=== PATIENT | female | born 1990 | race Caucasian/White ===

== ENCOUNTER 2022-03-28 15:18 | Inpatient (IN) | payer OTHER ==
[2022-03-28] MEDS ORDERED: LIDOCAINE 0.5% (PF) 5 MG/ML (50 ML SDV) SQ PRN (15:48)
[2022-03-28] MEDS ORDERED: OXYTOCIN 10 UNIT/ML 1 ML VIAL IM PRN (15:48)
[2022-03-28] MEDS ORDERED: CARBOPROST TROMETHAMINE 250 MCG/ML 1 ML AMP IM PRN (15:48)
[2022-03-28] MEDS ORDERED: TERBUTALINE 1 MG/ML VIAL SQ PRN (15:48)
[2022-03-28] MEDS ORDERED: METHYLERGONOVINE 0.2 MG/ML 1 ML AMP IM PRN (15:48)
[2022-03-28] MEDS ORDERED: OXYTOCIN 30 UNITS/500 ML NS 30 UNIT in SALINE 1 500ML.BAG IV SCH (16:00)
[2022-03-28] MEDS ORDERED: PENICILLIN G POTASSIUM 5,000,000 UNIT in DEXTROSE 5% IN WATER 100 ML IVPB STA ×2 (16:12)
[2022-03-28 16:13] LABS: Basophils % (A) 0 %; Eosinophils # (A) 0.1 k/uL (0-0.7); Eosinophils % (A) 1 %; HCT 32.2 % (34.0-46.0); HGB 11.7 gm/dL (11.4-16.0); Lymphocytes # (A) 1.6 k/uL (1.0-4.8); Lymphocytes % (A) 19 %; MCH 33.7 pg (25.0-35.0); MCHC 36.4 g/dL (31.0-37.0); MCV 92.5 fL (80.0-100.0); Mean Platelet Volume 9.3; Monocytes # (A) 0.3 k/uL (0-1.0); Monocytes % (A) 4 %; Neutrophils # (A) 6.2 k/uL (1.3-7.7); Neutrophils % (A) 73 %; Platelet Count 228 k/uL (150-450); RBC 3.48 m/uL (3.80-5.40); RDW 12.7 % (11.5-15.5); WBC 8.5 k/uL (3.8-10.6)
[2022-03-28] MEDS: LACTATED RINGERS 1,000 ML IV SCH (16:34)
--- NOTE | 2022-03-28 17:03 | P.HPOB ---
History of Present Illness H&P Date: 03/28/22 Chief Complaint: Possible rupture of membranes This is a 31-year-old 1 para 0 woman with an estimated due date of 03/25/2022 who presents at 40-3/7 weeks gestation for routine visit. She reports increase in vaginal discharge and waking up this morning with fluid that soaked through her pajamas. She had some increasing discharge over the last 48 hours as well. She denies any vaginal bleeding or contractions. She has not had any further leaking throughout the day. Upon evaluation in the office setting and JENNIFER was performed and was less than 3 cm. On pelvic examination her cervix was 3+ centimeters dilated and no membranes were palpable. She did not have any pulling on that exam however. Decision was made to admit for induction of labor secondary to possible prolonged rupture of membranes versus severe oligohydramnios post dates. The has been otherwise uncomplicated. She has a history of thyromegaly but normal evaluation. Laboratory data: Group B strep negative, blood type O+, antibody screen negative, rubella immune, VDRL nonreactive, hepatitis B surface antigen negative, HIV negative, gonorrhea and clinic cultures negative, TSH 2.0, glucose tolerance testing within normal limits, maternity 21 test negative. Review of Systems All systems: negative Past Medical History Past Medical History: Asthma Additional Past Medical History / Comment(s): occassional use of inhaler History of Any Multi-Drug Resistant Organisms: None Reported Past Surgical History: No Surgical Hx Reported Past Anesthesia/Blood Transfusion Reactions: No Reported Reaction Past Psychological History: No Psychological Hx Reported Smoking Status: Never smoker Past Alcohol Use History: None Reported Past Drug Use History: None Reported - Past Family History Brother(s) Additional Family Medical History / Comment(s): "pt states has leaky valve and irregular heartbeat, no diagnosis yet" Medications and Allergies Allergies Allergy/AdvReac Type Severity Reaction Status Date / Time raspberry Allergy Unknown Verified 03/28/22 15:47 Childhood watermelon Allergy Unknown Verified 03/28/22 15:47 Childhood Exam Vital Signs Temp Pulse Resp BP 03/28/22 15:47 97.3 F L 80 16 139/90 Intake and Output 03/28/22 03/28/22 03/28/22 06:59 14:59 22:59 Other: Weight 82.1 kg Targeted physical examination is performed in the office. Bedside ultrasound confirms vertex presentation with an JENNIFER of less than 3 cm. Cervical exam is 3- 4 cm dilated, 70% effaced, vertex in the -2 station, no palpable membranes however no pooling on exam. Her abdomen is gravid, soft and nontender. She has trace lower extremity edema. Estimated weight is approximate 7-7-1/2 pounds. Results Result Diagrams: 03/28/22 16:09 Abnormal Lab Results - Last 24 Hours (Table) 03/28/22 Range/Units 16:09 RBC 3.48 L (3.80-5.40) m/uL Hct 32.2 L (34.0-46.0) % Assessment and Plan (1) Oligohydramnios Current Visit: Yes Status: Acute Code(s): O41.00X0 - OLIGOHYDRAMNIOS, UNSP TRIMESTER, NOT APPLICABLE OR UNSP SNOMED Code(s): 89080375 (2) Post-dates Current Visit: Yes Status: Acute Code(s): O48.0 - POST-TERM SNOMED Code(s): 68411885 Plan: 31-year-old 1 para 0 woman admitted at 40-3/7 weeks gestation with finding of severe oligohydramnios possibly secondary to rupture of membranes within the last 24 hours. She is not in active labor. She is admitted for Pitocin induction of labor. She is group B strep negative however prophylactic antibiotics will be initiated secondary the possibility of prolonged rupture of membranes. status is currently reassuring with category 1 heart tones. She is irregularly tangela and Pitocin has been initiated. I a nticipate normal spontaneous vaginal delivery. Options for analgesia have been reviewed.
[2022-03-28] MEDS: PENICILLIN G POTASSIUM 2,500,000 UNIT in DEXTROSE 5% IN WATER 100 ML IVPB SCH ×2 (20:27)
[2022-03-29] MEDS ORDERED: diphenhydrAMINE 50 MG CAP PO PRN (02:08)
[2022-03-29] MEDS ORDERED: ACETAMINOPHEN TAB 325 MG TAB PO PRN (02:08)
[2022-03-29] MEDS ORDERED: diphenhydrAMINE 50 MG/ML 1 ML VIAL IVP PRN ×2 (02:08)
[2022-03-29] MEDS ORDERED: SIMETHICONE 80 MG CHEWABLE PO PRN (02:08)
[2022-03-29] MEDS ORDERED: LANOLIN CREAM 5 GM TUBE TOPICAL PRN (02:08)
[2022-03-29] MEDS ORDERED: diphenhydrAMINE 25 MG CAP PO PRN (02:08)
[2022-03-29] MEDS ORDERED: BENZOCAINE/MENTHOL SPRAY 1 GM/SPRAY AEROSOL TOPICAL PRN (02:08)
[2022-03-29] MEDS ORDERED: MEASLES-MUMPS-RUBELLA VACC/PF 12,500 UNIT/0.5 ML VIAL SQ ONE (02:08)
[2022-03-29] MEDS ORDERED: HYDROCORTISONE 2.5% RECTAL CREAM 30 GM TUBE RECTAL PRN (02:08)
[2022-03-29] MEDS ORDERED: ZOLPIDEM 5 MG TAB PO PRN (02:08)
[2022-03-29] MEDS ORDERED: OXYTOCIN 30 UNITS/500 ML NS 30 UNIT in SALINE 1 500ML.BAG IV SCH (02:15)
--- NOTE | 2022-03-29 02:21 | P.PROBDLV ---
Vaginal Delivery Note - . Vaginal Delivery Note: DATE OF DELIVERY: [03/29/2022] This is a [31]-year-old [] female, [1], para [0], EDC [03/25/2022] at [40 and 4/7] weeks' gestation. Patient presented with [spontaneous rupture of membranes] which occurred on the evening of [03/28/2022], [clear fluid]. Please see admitting H&P for details. is remarkable for group B strep culture is [negative]. Blood type [O] [positive]. Rubella status immune. Patient was admitted and [oxytocin augmentation was started. This is titrated per hospital protocol]. Patient requested epidural, and this was placed without difficulty per the anesthesia staff. She progressed well through the first stage of labor. heart tones were reassuring throughout labor. Patient became completely dilated at [2340] hours and began the second stage of labor at that time. She pushed the quite successfully in the [occiput anterior] position. The perineal body was draped in the usual sterile fashion. The infant delivered [occiput anterior], and restituted accordingly. [The right or anterior shoulder] was then easily delivered from underneath the pubic symphysis. The patient was officially delivered of a liveborn [male] at [0121] hours. Umbilical cord was doubly clamped and ligated. Infant was handed to waiting nurses for evaluation where scores of [9 and 9] at one and five minutes respectively were given. The weighed 3595 grams. The placenta delivered spontaneously. It was inspected and noted to be intact with trivascular cord at [0125] hours. At this time, the perineal body was redraped. Inspection of the cervix, vagina, perineum, periurethral and perirectal areas revealed[a large second-degree perineal laceration]. [This was easily repaired in the usual fashion using 2-0 Vicryl suture]. All sponge, needle, and instrument counts are correct at the end of this procedure. Estimated blood loss was 500 mL.
[2022-03-29] MEDS: IBUPROFEN 600 MG TAB PO PRN ×4 (02:28→21:15)
[2022-03-29] MEDS: PENICILLIN G POTASSIUM 2,500,000 UNIT in DEXTROSE 5% IN WATER 100 ML IVPB SCH ×2 (03:03)
[2022-03-29] MEDS: LACTATED RINGERS 1,000 ML IV SCH ×3 (03:03→16:00)
[2022-03-29 04:07] VITALS: RESP 16
[2022-03-29] MEDS: SENNOSIDES-DOCUSATE SODIUM 1 EACH TAB PO SCH (08:54)
[2022-03-30] MEDS: SENNOSIDES-DOCUSATE SODIUM 1 EACH TAB PO SCH ×3 (01:17→22:06)
[2022-03-30] MEDS: IBUPROFEN 600 MG TAB PO PRN ×3 (04:24→16:51)
[2022-03-30 05:58] LABS: Basophils % (A) 0 %; Eosinophils # (A) 0.1 k/uL (0-0.7); Eosinophils % (A) 1 %; HCT 24.9 % (34.0-46.0); Lymphocytes # (A) 2.2 k/uL (1.0-4.8); Lymphocytes % (A) 16 %; MCH 32.2 pg (25.0-35.0); MCHC 34.1 g/dL (31.0-37.0); MCV 94.6 fL (80.0-100.0); Mean Platelet Volume 10.6; Monocytes # (A) 0.4 k/uL (0-1.0); Monocytes % (A) 3 %; Neutrophils # (A) 10.2 k/uL (1.3-7.7); Neutrophils % (A) 77 %; Platelet Count 184 k/uL (150-450); RBC 2.63 m/uL (3.80-5.40); RDW 13.6 % (11.5-15.5); WBC 13.2 k/uL (3.8-10.6)
[2022-03-30 07:17] LABS: HGB 8.5 gm/dL (11.4-16.0)
--- NOTE | 2022-03-30 08:06 | P.PNOBGVD ---
Subjective - Subjective Principal diagnosis: day 1 Interval history: Feeling overall well however reports when she stands up she has to "concentrate" on her bleeding. She denies feeling specifically short of breath or dizzy. She is otherwise ambulating and voiding without difficulty. She reports her lochia has significantly decreased from yesterday. She is having some cramping with using the breast pump otherwise no pain. She denies swelling redness or pain of the lower extremities. Patient reports: Reports appetite normal, Reports voiding normally, Reports pain well controlled, Reports ambulating normally Milfay: in NICU (Positive blood cultures) Objective - Latest Vital Signs Latest vital signs: Vital Signs Temp Pulse Resp BP Pulse Ox 03/30/22 00:00 98.0 F 86 16 133/82 03/29/22 15:35 98.0 F 72 16 135/89 99 03/29/22 12:56 98.2 F 74 16 137/91 100 Intake and Output 03/29/22 03/30/22 03/30/22 22:59 06:59 14:59 Other: # Voids 1 1 - Exam Lungs: bilateral: normal Extremities: Present: normal, other (No erythema). Absent: tenderness Abdomen: Present: normal appearance, soft. Absent: tenderness Uterus: Present: normal, firm. Absent: tenderness - Labs Labs: Abnormal Lab Results - Last 24 Hours (Table) 03/30/22 Range/Units 05:38 WBC 13.2 H (3.8-10.6) k/uL RBC 2.63 L (3.80-5.40) m/uL Hgb 8.5 L D (11.4-16.0) gm/dL Hct 24.9 L (34.0-46.0) % Neutrophils # 10.2 H (1.3-7.7) k/uL Assessment and Plan (1) Oligohydramnios Current Visit: Yes Status: Acute Code(s): O41.00X0 - OLIGOHYDRAMNIOS, UNSP TRIMESTER, NOT APPLICABLE OR UNSP SNOMED Code(s): 45638017 (2) Post-dates Current Visit: Yes Status: Acute Code(s): O48.0 - POST-TERM SNOMED Code(s): 08219702 (3) Normal spontaneous vaginal delivery Current Visit: Yes Status: Acute Code(s): O80 - ENCOUNTER FOR FULL-TERM UNCOMPLICATED DELIVERY SNOMED Code(s): 48668200 (4) Perineal laceration with delivery, second degree Current Visit: Yes Status: Acute Code(s): O70.1 - SECOND DEGREE PERINEAL LACERATION DURING DELIVERY SNOMED Code(s): 7105694 Plan: day 1 status post normal spontaneous vaginal delivery a postdates for severe oligohydramnios possible prolonged rupture of membranes. The is in the special care nursery and is weaning off of O2 however the blood cultures did come back positive this morning. Overall the patient is recovering well however she is describing the need to "concentrate" when she is standing up. We will get an abdominal binder for course support. Her vital signs are otherwise stable and her hemoglobin this morning is 8.5. We will monitor.
[2022-03-30 09:35] VITALS: TEMP 98.3
[2022-03-31] MEDS: IBUPROFEN 600 MG TAB PO PRN (06:02)
--- NOTE | 2022-03-31 08:31 | P.DS ---
Providers Date of admission: 03/28/22 15:37 Expected date of discharge: 03/31/22 Attending physician: Magdalena Jimenez Primary care physician: Stated None - Discharge Diagnosis(es) (1) Oligohydramnios Current Visit: Yes Status: Acute (2) Post-dates Current Visit: Yes Status: Acute (3) Normal spontaneous vaginal delivery Current Visit: Yes Status: Acute (4) Perineal laceration with delivery, second degree Current Visit: Yes Status: Acute Hospital Course: This is a 31-year-old 1 now para 1 woman who is admitted at 40-3/7 weeks gestation for induction of labor after findings of severe oligohydramnios in the office in the setting of possible prolonged rupture of membranes. Please see the admission history and physical for details. Following admission she underwent a Pitocin induction of labor. She eventually received an epidural anesthetic. She went on to deliver a liveborn male over a second-degree perineal laceration with Apgars of 9 at 1 minute and 9 at 5 minutes. Please see the delivery summary for details. Her course was unremarkable. She did have some anemia with an initial hemoglobin of approximately 11 and a postdelivery hemoglobin of 8.5. She was asymptomatic and her vital signs are stable. The was admitted to the special care nursery and ultimately ended up having positive blood cultures. By the morning of day #2 she continued to do well she is ambulating and voiding without difficulty. Her lochia was significantly decreased. She was using the breast pump successfully. She was therefore discharged home with routine instructions for care and follow-up. Patient Condition at Discharge: Good Plan - Discharge Summary Follow up Appointment(s)/Referral(s): Magdalena Jimenez MD [STAFF PHYSICIAN] - 6 Weeks Activity/Diet/Wound Care/Special Instructions: Follow-up in the office in 6 weeks . Call with any concerning signs or symptoms including heavy vaginal bleeding, severe abdominal pain, fever greater than 101, swelling or redness of the lower extremities, foul vaginal discharge, or signs of depression. Nothing in the vagina for 6 weeks after delivery, specifically no intercourse. Discharge Disposition: HOME SELF-CARE
[2022-03-31] MEDS: SENNOSIDES-DOCUSATE SODIUM 1 EACH TAB PO SCH (09:16)
[2022-03-31 09:32] VITALS: BP 135/80; PULSE 72
== END 2022-03-31 15:00 | disposition home or self-care (01) | DRG 806 ==
LOC: FBPOP 15:18 → 4FBP 15:37 → MERGE 15:37
PROVIDERS: ADMIT Obstetrics & Gynecology; ATTEND Obstetrics & Gynecology
PROC: 0KQM0ZZ Repair Perineum Muscle, Open Approach (ICD-10-PCS; principal; 2022-03-29)
PROC: 10E0XZZ Delivery of Products of Conception, External Approach (ICD-10-PCS; 2022-03-29)
PROC: 4A0HXCZ Measurement of Products of Conception, Cardiac Rate, External Approach (ICD-10-PCS; 2022-03-29)
PROC: 3E033VJ Introduction of Other Hormone into Peripheral Vein, Percutaneous Approach (ICD-10-PCS; 2022-03-29)
DX: O42.02 Full-term premature rupture of membranes, onset of labor within 24 hours of rupture (principal); O41.03X0 Oligohydramnios, third trimester, not applicable or unspecified; Z37.0 Single live birth; O70.1 Second degree perineal laceration during delivery; J45.909 Unspecified asthma, uncomplicated; O48.0 Post-term pregnancy; O90.81 Anemia of the puerperium; D64.9 Anemia, unspecified; O99.52 Diseases of the respiratory system complicating childbirth; Z3A.40 40 weeks gestation of pregnancy; Z91.018 Allergy to other foods
CPT/HCPCS: 85025; 86850; 86900; 86901